=== PATIENT | female | born 2000 | race Caucasian/White ===

== ENCOUNTER 2021-10-31 09:57 | Emergency (ER) | payer OTHER ==
[~2021-10-31] VITALS: Ht 152.4 cm; Wt 63.7 kg
[~2021-10-31 09:57] MED LIST: BACTRIM DS TAB1 EACH PO; ZOFRAN ODT4 MG PO
[2021-10-31] MEDS ORDERED: ONDANSETRON HCL INJ 2MG/ML 2ML 2 MG/ML VIAL IV STA (10:27)
[2021-10-31] MEDS ORDERED: SODIUM CHLORIDE 0.9% 1000ML 1,000 ML IV STA (10:27)
[2021-10-31] MEDS ORDERED: ACETAMINOPHEN 325 MG TAB PO STA (10:43)
[2021-10-31] MEDS ORDERED: ACETAMINOPHEN 325 MG TAB ONE (10:54)
[2021-10-31] MEDS ORDERED: ONDANSETRON HCL INJ 2MG/ML 2ML 2 MG/ML VIAL ONE (10:54)
[2021-10-31] MEDS ORDERED: SODIUM CHLORIDE 0.9% 1000ML 1,000 ML ONE (10:54)
[2021-10-31] MEDS ORDERED: IOPAMIDOL 370 MG/ML 200 ML INFUS..BTL INJ ONE (11:26)
[2021-10-31] MEDS ORDERED: SODIUM CHLORIDE 0.9% 50ML 50 ML ONE (11:26)
[2021-10-31] MEDS ORDERED: VENTOLIN HFA18 GM INH (12:48)
[2021-10-31] MEDS ORDERED: PREDNISONE20 MG PO (12:48)
[2021-10-31] MEDS ORDERED: AZITHROMYCIN250 MG PO (12:48)
[2021-10-31] MEDS ORDERED: ONDANSETRON ODT4 MG PO (12:48)
== END 2021-10-31 13:01 | disposition home or self-care (01) ==
LOC: FSED 10:11
DX: R42 Dizziness and giddiness (principal); R10.9 Unspecified abdominal pain
CPT/HCPCS: 71046; 74177; 80048; 80076; 81003; 81025; 82553; 83518; 83880; 84484; 85025; 85379; 87400; 96374; 99284; J2405; J7030; Q9967

== ENCOUNTER 2024-09-15 14:27 | Emergency (ER) | payer OTHER ==
[~2024-09-15] VITALS: Ht 152.4 cm; Wt 69.0 kg
[~2024-09-15 14:27] MED LIST changes: +AZITHROMYCIN250 MG PO; +IBUPROFEN200 MG PO; +ONDANSETRON ODT4 MG PO; +PREDNISONE20 MG PO; +THERAFLU EXP245.5 ML PO; +VENTOLIN HFA18 GM INH
[2024-09-15] MEDS ORDERED: OMEPRAZOLE40 MG PO (16:10)
[2024-09-15 16:14] VITALS: PULSE 80; RESP 16; TEMP 98.7; O2SAT 98
== END 2024-09-15 16:19 | disposition home or self-care (01) ==
LOC: FSED 14:35
DX: R42 Dizziness and giddiness (principal); K21.9 Gastro-esophageal reflux disease without esophagitis; R10.13 Epigastric pain; R94.31 Abnormal electrocardiogram [ECG] [EKG]
CPT/HCPCS: 80053; 81025; 85025; 93005; 99283

== ENCOUNTER 2025-01-25 13:52 | Emergency (ER) | payer OTHER ==
[~2025-01-25 13:52] MED LIST changes: +OMEPRAZOLE40 MG PO
[2025-01-25 13:55] VITALS: PULSE 90; RESP 20; TEMP 98.8; O2SAT 95
== END 2025-01-25 14:18 | disposition home or self-care (01) ==
LOC: FSED 13:58
DX: H92.01 Otalgia, right ear (principal); S00.431A Contusion of right ear, initial encounter; Y93.E8 Activity, other personal hygiene; Y92.89 Other specified places as the place of occurrence of the external cause
CPT/HCPCS: 99284